=== PATIENT | male | born 1955 | race Caucasian/White ===

== ENCOUNTER 2018-05-16 11:10 | Emergency (ER) | payer SELFPAY ==
[2018-05-16 11:11] VITALS: PULSE 96
[2018-05-16 11:29] VITALS: BMI 24.3
[2018-05-16 11:35] VITALS: BP 109/70; PULSE 70; RESP 18; TEMP 97.8; O2SAT 98
== END 2018-05-16 12:57 | disposition left against medical advice (07) ==
LOC: C.ER 11:10
DX: Z02.89 Encounter for other administrative examinations (principal); R30.9 Painful micturition, unspecified

== ENCOUNTER 2018-07-26 08:35 | Emergency (ER) | payer SELFPAY ==
[2018-07-26 08:35] VITALS: PULSE 96; BMI 24.3
[2018-07-26 08:58] VITALS: BP 106/71; PULSE 71; RESP 16; TEMP 98.3; O2SAT 99
[2018-07-26 10:06] LABS: SQUAMOUS EPITHIAL 4 /hpf (0-5); URINE BACTERIA RARE (<OCC); URINE BILIRUBIN NEGATIVE (NEGATIVE); URINE BLOOD 1+ (NEGATIVE); URINE CLARITY Hazy (Clear); URINE COLOR Yellow (YELLOW); URINE GLUCOSE (UA) NORMAL (Normal); URINE LEUKOCYTE ESTERASE NEG Leu/uL (Negative); URINE PROTEIN NEGATIVE (NEGATIVE); URINE UROBILINOGEN NORMAL mg/dL (0.2-1.0)
--- NOTE | 2018-07-26 10:14 | C.PDOC ---
History Of Present Illness 63 y/o male presents to the ED complaining of dry cracked skin to his hands and fingers for approximately 2 weeks. States he washes his hands frequently. Patient is also complaining of increased frequency of urination and dysuria for 1 month. He admits to drinking tea with a lot of sugar in it, and he has concern for possible diabetes. No other fevers or complaints. Time Seen by Provider: 07/26/18 09:04 Chief Complaint (Nursing): Abnormal Skin Integrity History Per: Patient History/Exam Limitations: no limitations Onset/Duration Of Symptoms: Days Current Symptoms Are (Timing): Still Present Past Medical History Reviewed: Historical Data, Nursing Documentation, Vital Signs Vital Signs: Last Vital Signs Temp 98.3 F 07/26/18 08:46 Pulse 71 07/26/18 08:46 Resp 16 07/26/18 08:46 BP 106/71 07/26/18 08:46 Pulse Ox 99 07/26/18 08:46 - Medical History PMH: Benign Prostatic Hyperplasia, Emphysema, Gastritis Denies: Depression - [facility] Procedures CORONAR ARTERIOGR-2 CATH (12/16/11) CORONARY ARTERY STENT INSERTION [id number] (12/16/11) INJECT/INFUSE PLATELET INHIBITOR (12/16/11) INSERTION OF TWO VASCULAR STENTS (12/16/11) LEFT HEART CARDIAC CATH (12/16/11) LT HEART ANGIOCARDIOGRAM (12/16/11) PERCUTANEOUS TRANSLUMINAL CORONARY ANGIOPLASTY [PTCA] (12/16/11) PROCEDURE ON SINGLE VESSEL (12/16/11) Family History: States: Unknown Family Hx - Social History Hx Alcohol Use: No Hx Substance Use: No - Immunization History Hx Tetanus Toxoid Vaccination: No Hx Influenza Vaccination: No Hx Pneumococcal Vaccination: No Review Of Systems Constitutional: Negative for: Fever, Chills Cardiovascular: Negative for: Chest Pain Respiratory: Negative for: Shortness of Breath Gastrointestinal: Negative for: Nausea, Vomiting Genitourinary: Positive for: Dysuria, Frequency. Negative for: Hematuria, Rash Musculoskeletal: Negative for: Back Pain Skin: Positive for: Other (dry skin) Neurological: Negative for: Weakness, Numbness Physical Exam - Physical Exam Appears: Non-toxic, No Acute Distress Skin: Warm, Dry Head: Atraumatic, Normacephalic Eye(s): bilateral: Normal Inspection, PERRL, EOMI Oral Mucosa: Moist Neck: Normal ROM Chest: Symmetrical Cardiovascular: Rhythm Regular, No Murmur Respiratory: Normal Breath Sounds, No Rales, No Rhonchi, No Wheezing Gastrointestinal/Abdominal: Soft, No Tenderness, No Distention Extremity: Normal ROM, No Deformity, No Swelling, Other (Dry cracked skin around the nails bilaterally, no erythema or paronychia) Pulses: Left Radial: Normal, Right Radial: Normal Neurological/Psych: Oriented x3 ED Course And Treatment - Laboratory Results Lab Results: Urine Color Yellow (YELLOW) 07/26/18 09:50 Urine Clarity Hazy (Clear) 07/26/18 09:50 Urine pH 5.0 (5.0-8.0) 07/26/18 09:50 Ur Specific [place] 1.024 (1.003-1.030) 07/26/18 09:50 Urine Protein Negative mg/dL (NEGATIVE) 07/26/18 09:50 Urine Glucose (UA) Normal mg/dL (Normal) 07/26/18 09:50 Urine Ketones Negative mg/dL (NEGATIVE) 07/26/18 09:50 Urine Blood 1+ (NEGATIVE) H 07/26/18 09:50 Urine Nitrate Negative (NEGATIVE) 07/26/18 09:50 Urine Bilirubin Negative (NEGATIVE) 07/26/18 09:50 Urine Urobilinogen Normal mg/dL (0.2-1.0) 07/26/18 09:50 Ur Leukocyte Esterase Neg Bella/uL (Negative) 07/26/18 09:50 Urine WBC (Auto) 1 /hpf (0-5) 07/26/18 09:50 Urine RBC (Auto) 6 /hpf (0-3) H 07/26/18 09:50 Ur Squamous Epith Cells 4 /hpf (0-5) 07/26/18 09:50 Urine Bacteria Rare (<OCC) 07/26/18 09:50 O2 Sat by Pulse Oximetry: 99 (RA) Pulse Ox Interpretation: Normal Progress Note: Patient instructed to moisturize his skin. Accucheck done, BS is 103. UA ordered and reviewed, showing +blood and rare bacteria. Will treat patient for UTI with Cipro. Disposition Counseled Patient/Family Regarding: Diagnosis, Need For Followup, Rx Given - Disposition Referrals: [facility] [Outside] Disposition: HOME/ ROUTINE Disposition Time: 10:15 Condition: STABLE Additional Instructions: FOLLOW UP IN THE MEDICAL CLINIC IN 1-2 DAYS USE OVER THE COUNTER LOTION/CREAM FOR DRY CRACKED SKIN OF HANDS/FINGERS RETURN TO ER IF SYMPTOMS WORSEN Prescriptions: Ciprofloxacin [Cipro] 1 tab PO BID #14 tab Instructions: Urinary Tract Infection, Adult (DC) Forms: [employer] (Turkmen) Print Language: SETSWANA - Clinical Impression Clinical Impression: Dry skin, UTI (urinary tract infection) - Scribe Statement The provider has reviewed the documentation as recorded by the Alicia Martino Provider Attestation: All medical record entries made by the Alicia were at my direction and personally dictated by me. I have reviewed the chart and agree that the record accurately reflects my personal performance of the history, physical exam, medical decision making, and the department course for this patient. I have also personally directed, reviewed, and agree with the discharge instructions and disposition.
== END 2018-07-26 10:51 | disposition home or self-care (01) ==
LOC: C.ER 08:35
DX: L98.9 Disorder of the skin and subcutaneous tissue, unspecified (principal); N39.0 Urinary tract infection, site not specified

== ENCOUNTER 2018-07-30 13:53 | Outpatient (CLI) | payer SELFPAY | END 2018-07-30 13:54 | disposition home or self-care (01) | LOC: C.CTH 13:53 ==

== ENCOUNTER 2018-08-31 10:42 | Emergency (ER) | payer SELFPAY ==
[2018-08-31 10:42] VITALS: PULSE 96; BMI 24.3
--- NOTE | 2018-08-31 12:32 | C.PDOC ---
History Of Present Illness 62 y/o male presents to the ER complaining of abdominal pain which began today. Patient points to the left side of the abdomen. He notes that he has urinary frequency and he can't control it. He has history of prostate problems and he takes medicine(unknown) at home. Patient is also requesting refill of Cialis.Denies having fever,chills, nausea, vomiting, and diarrhea. 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) Onset/Duration Of Symptoms: Days Current Symptoms Are (Timing): Still Present Severity: Moderate Past Medical History Reviewed: Historical Data, Nursing Documentation, Vital Signs - Medical History PMH: Benign Prostatic Hyperplasia, Emphysema, Gastritis Denies: Depression Other Surgeries: Hx of surgeries - [facility] Procedures CORONAR ARTERIOGR-2 CATH (12/16/11) CORONARY ARTERY STENT INSERTION [id number] (12/16/11) INJECT/INFUSE PLATELET INHIBITOR (12/16/11) INSERTION OF TWO VASCULAR STENTS (12/16/11) LEFT HEART CARDIAC CATH (12/16/11) LT HEART ANGIOCARDIOGRAM (12/16/11) PERCUTANEOUS TRANSLUMINAL CORONARY ANGIOPLASTY [PTCA] (12/16/11) PROCEDURE ON SINGLE VESSEL (12/16/11) Family History: States: No Known Family Hx - Social History Hx Alcohol Use: No Hx Substance Use: No - Immunization History Hx Tetanus Toxoid Vaccination: No Hx Influenza Vaccination: No Hx Pneumococcal Vaccination: No Review Of Systems Constitutional: Negative for: Fever, Chills Gastrointestinal: Positive for: Abdominal Pain. Negative for: Nausea, Vomiting, Diarrhea Genitourinary: Positive for: Frequency Physical Exam - Physical Exam Appears: Well, No Acute Distress Skin: Warm, Dry Head: Atraumatic, Normacephalic Eye(s): bilateral: Normal Inspection Cardiovascular: Rhythm Regular Respiratory: No Rales, No Rhonchi, No Wheezing Gastrointestinal/Abdominal: Bowel Sounds (normal bowel sounds), Soft, No Tenderness, No Guarding, No Rebound Back: CVA Tenderness (left sided CVA tenderness) Neurological/Psych: Oriented x3, Normal Speech, Normal Cognition ED Course And Treatment - Laboratory Results Result Diagrams: 08/31/18 13:16 08/31/18 13:16 - CT Scan/US CT-Abd & Pelv. Other Rad Studies (CT/US): Read By Radiologist, Radiology Report Reviewed CT/US Interpretation: IMPRESSION: 1. Cortical scar in the left interpolar region and lower pole of the kidney, mild fullness in the left collecting system with mild dilatation of the proximal ureters and segmental severe dilatation of the distal ureteral proximal to the UV junction. Distal ureteral stricture cannot be excluded. No evidence for nephrolithiasis or urolithiasis. 2. 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 Medical Decision Making Medical Decision Making: Plan: --Labs --UA --CT-Abd &Pelv. --Tylenol PO pt's ct reviewed; discussed with Dr Fields, [facility]. Disposition Counseled Patient/Family Regarding: Studies Performed, Diagnosis, Need For Followup - Disposition Referrals: Davide Fields MD [Staff Provider] - [facility] [Outside] [facility] [Outside] Disposition: HOME/ ROUTINE Disposition Time: 14:28 Condition: GOOD Additional Instructions: Follow up in clinic on September 07 as already scheduled. Follow up with Dr Fields (urology). Return to ER for any worse symptoms. Forms: [facility] (Syriac), General Discharge Instructions - Clinical Impression Clinical Impression: Urinary frequency - PA / COMPLIANCE AUDITOR / Resident Statement MD/DO has reviewed & agrees with the documentation as recorded. - Scribe Statement The provider has reviewed the documentation as recorded by the Alicia Rosales Provider Attestation All medical record entries made by the Alicia were at my direction and personally dictated by me. I have reviewed the chart and agree that the record accurately reflects my personal performance of the history, physical exam, medical decision making, and the department course for this patient. I have also personally directed, reviewed, and agree with the discharge instructions and disposition.
[2018-08-31 13:24] LABS: BASO % 0.7 % (0.0-2.0); EOS # 0.3 K/uL (0.0-0.7); EOS % 4.3 % (0.0-4.0); HEMOGLOBIN 14.9 g/dL (12.0-18.0); LYMPH # 1.8 K/uL (1.0-4.3); LYMPH % 24.7 % (20.0-40.0); MEAN CELL VOLUME 81.5 fL (80.0-94.0); MEAN CORPUSCULAR HEMOGLOBIN 27.2 pg (27.0-31.0); MEAN CORPUSCULAR HGB CONC 33.4 g/dL (33.0-37.0); MEAN PLATELET VOLUME 8.3 fL (7.2-11.7); MONO # 0.8 K/uL (0.0-0.8); MONO % 10.7 % (0.0-10.0); NEUT # 4.2 K/uL (1.8-7.0); NEUT % 59.6 % (50.0-75.0); RBC 5.48 Mil/uL (4.40-5.90); RED CELL DISTRIBUTION WIDTH 14.3 % (11.5-14.5); WHITE BLOOD COUNT 7.1 K/uL (4.8-10.8)
[2018-08-31 13:38] LABS: URINE BILIRUBIN NEGATIVE (NEGATIVE); URINE BLOOD 1+ (NEGATIVE); URINE CLARITY Clear (Clear); URINE COLOR Yellow (YELLOW); URINE GLUCOSE (UA) NORMAL (Normal); URINE LEUKOCYTE ESTERASE NEG Leu/uL (Negative); URINE PROTEIN NEGATIVE (NEGATIVE); URINE UROBILINOGEN NORMAL mg/dL (0.2-1.0)
[2018-08-31 13:51] LABS: ALB/GLOB RATIO 1.3 (1.0-2.1); ALBUMIN 4.1 g/dL (3.5-5.0); ALT/SGPT 16 U/L (21-72); AST/SGOT 27 U/L (17-59); BLOOD UREA NITROGEN 10 mg/dL (9-20); CALCIUM 9.6 mg/dl (8.6-10.4); GFR NON-AFRICAN AMERICAN > 60; LIPASE 97 U/L (23-300)
--- NOTE | 2018-08-31 13:58 | CT ---
Date of service: 08/31/2018 PROCEDURE: CT Abdomen and Pelvis without intravenous contrast HISTORY: Left flank pain COMPARISON: None. TECHNIQUE: CT scan of the abdomen and pelvis was performed without administration of intravenous contrast. Oral contrast was not administered. Coronal and sagittal reformatted images were obtained. Radiation dose: Total exam DLP = 388.38 mGy-cm. This CT exam was performed using one or more of the following dose reduction techniques: Automated exposure control, adjustment of the mA and/or kV according to patient size, and/or use of iterative reconstruction technique. FINDINGS: LOWER THORAX: There is linear atelectasis/scarring in the right middle lobe and lingula, and dependent atelectasis in the left lung base. LIVER: Normal in size. No gross lesion or ductal dilatation. GALLBLADDER AND BILE DUCTS: Well distended. No calcified gallstones. No common bile duct dilatation. PANCREAS: Normal in size. No gross lesion or ductal dilatation. SPLEEN: Normal in size. ADRENALS: Normal in size. No discrete nodule. KIDNEYS AND URETERS: Both kidneys are normal in size. There is a duplex collecting system in both kidneys with both ureters unifying approximately in the mid abdomen with single distal ureters. No There is a cortical scar in the left interpolar region and lower pole. There is mild fullness in the left renal collecting system, mild dilatation of the proximal ureters and severe segmental dilatation of the distal ureteral proximal to the UV junction. VASCULATURE: Normal in caliber. No aortic aneurysm. There are early aortic atherosclerotic calcifications present. BOWEL: Evaluation of the bowel is limited in the absence of oral contrast. The small bowel loops are normal in caliber. There is moderate amount of stool in the colon. APPENDIX: Normal appendix. PERITONEUM: No free fluid. No free air. LYMPH NODES: No enlarged lymph nodes. BLADDER: Well distended and normal in appearance. REPRODUCTIVE: The prostate gland is normal in size. BONES: No acute fracture. Within normal limits for the patient's age. OTHER FINDINGS: There are bilateral small fat containing inguinal hernias. There is a small sliding hiatal hernia. IMPRESSION: 1. Cortical scar in the left interpolar region and lower pole of the kidney, mild fullness in the left collecting system with mild dilatation of the proximal ureters and segmental severe dilatation of the distal ureteral proximal to the UV junction. Distal ureteral stricture cannot be excluded. No evidence for nephrolithiasis or urolithiasis. 2. 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
[2018-08-31 14:44] VITALS: BP 125/85; PULSE 62; RESP 20; TEMP 97.7; O2SAT 97
== END 2018-08-31 14:44 | disposition home or self-care (01) ==
LOC: C.ER 10:42
DX: R35.0 Frequency of micturition (principal)